=== PATIENT | male | born 2000 | race Caucasian/White ===

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

== ENCOUNTER 2022-11-25 12:44 | Emergency (ER) | payer OTHER, SELFPAY ==
[2022-11-25 12:46] VITALS: BP 140/95; PULSE 81; RESP 14; TEMP 36.7; O2SAT 97; BMI 47.2
--- NOTE | 2022-11-25 13:05 | EDS_ITS ---
HPI History of Present Illness Chief Complaint: Abd Pain PFSH PFS Medical History Generalized anxiety disorder Major depressive disorder, recurrent severe without psychotic features PTSD (post-traumatic stress disorder) Home Medications albuterol sulfate 90 mcg/actuation aerosol inhaler (ProAir HFA) 1 puff IH Q6H PRN PRN Wheezing 08/16/16 [History Last Taken Unknown] montelukast 10 mg tablet 1 tab PO QHS 08/16/16 [History Last Taken Unknown] aripiprazole 5 mg tablet 10 mg PO QHS 01/10/20 [History Last Taken Unknown] bupropion HCl 150 mg 24 hr tablet, extended release (Wellbutrin XL) 150 mg PO DAILY 30 days #30 tabs 02/17/21 [Rx Last Taken Unknown] bupropion HCl 300 mg 24 hr tablet, extended release (Wellbutrin XL) 300 mg PO DAILY 30 days #30 tabs 02/17/21 [Rx Last Taken Unknown] buspirone 5 mg tablet 5 mg PO BID 02/17/21 [History Last Taken Unknown] hydroxyzine pamoate 50 mg capsule (Vistaril) 50 mg PO BID PRN PRN Anxiety 02/17/21 [History Last Taken Unknown] melatonin 10 mg tablet 10 mg PO QHS PRN PRN Insomnia 02/17/21 [History Last Taken Unknown] Allergy/AdvReac Type Severity Reaction Status Date / Time No Known Allergies Allergy Verified 11/25/22 12:45 Social History Smoking Status: Never smoker EXAM Physical Exam Const Vital Signs: 11/25/22 12:46 Temperature 98.1 F Temperature Source Temporal Pulse Rate 81 Respiratory Rate 14 Blood Pressure 140/95 H Blood Pressure Mean 110 Pulse Ox 97 Oxygen Delivery Method Room Air MDM MDM MDM Narrative Medical decision making narrative: HISTORY OF PRESENT ILLNESS: 22-year-old male here with concern for abdominal pain secondary to hernia. He states he was at his doctor's office because of several days to weeks of left lower quad abdominal pain. He states his primary doctor thought he may have had a hernia. Sent him to the ED for further evaluation. Notes nausea but no vomiting, left lower quad abdominal pain. No testicular pain. REVIEW OF SYSTEMS: Pertinent positives: Abdominal pain Pertinent negatives: Nausea vomiting, fever PHYSICAL EXAM: Nursing triage notes reviewed, Vital signs reviewed Constitutional: please see mdm HENT: MMM Eyes: Pupils equal round and reactive to light, Extraocular muscles intact Neck: No stridor, no JVD, full neck ROM Lungs: Clear to auscultation, No wheezing or rales. No increased work of breathing, no conversational dyspnea, no accessory muscle use, no nasal flaring. No respiratory distress noted Heart: Regular rate and rhythm, No murmurs, No rubs and No gallops, 2+ distal pulses (radial, femoral, posterior tibial) in all extremities Abdomen: Left lower quadrant TTP, no obvious hernia, no overlying skin changes, no testicular tenderness. : No CVAT, normal testicular lie, positive cremasteric reflex, no testicular tenderness on exam Extremities: No edema Neuro: No focal neurological deficits, cranial nerves II through XII intact, 5/5 strength in all extremities. Intact sensation to light touch in all extremities, 2+ reflexes bilateral patella tendons. Normal gait. No ataxia. Skin: No rash or lesions noted MEDICAL DECISION MAKING: Chief Complaint: Abdominal pain External records reviewed: CT scan from 2016 shows no acute process Consults: none ALL IMAGES (IF OBTAINED) HAVE BEEN PERSONALLY REVIEWED AND INTERPRETED BY MYSELF. Lactate is wnl indicating no end-organ hypoperfusion and/or hypoxia. CBC without leukocytosis, severe anemia, no thrombocytopenia. BMP without evidence of significant electrolyte abnormalities, no anion gap, no acute kidney injury. Lipase is wnl indicating no pancreatic inflammation. LFTs show no evidence of hepatobiliary pathology. Urinalysis shows no evidence of urinary inflammation suggestive of UTI [facility] Narrative: Patient was hemodynamically stable, afebrile, nontoxic appearing. Abdominal exam is not consistent with acute surgical abdomen. I considered the following differential diagnosis: Incarcerated hernia, diverticulitis, UTI, orchitis, testicular torsion, UTI, pyelonephritis There is no testicular tenderness on exam and is such a below suspicion for testicular abnormalities. I obtained a broad lab and imaging work-up to further elucidate the etiology of the patient's complaints. Specifically was concerned about incarcerated hernia. I will obtain a lactate and basic labs. The patient Toradol for pain, normal saline for fluid resuscitation and Zofran for nausea. Labs are unremarkable for signs of endorgan hypoperfusion, significant anemia or significant systemic inflammation. Urine was negative for UTI. CT scan showed no evidence of acute intra-abdominal pathology. No indication for acute surgical evaluation at this time. Patient was discharged home with close general surgery follow-up and strict return precautions. The patient and/or family, caregivers express understanding. The patient and/or family, caregivers agrees with the plan. Shared decision making: I will have a discussion with the patient and or visitors regarding risk/benefits of further testing or admission. They will be made aware of of the risk/benefits inherent in this decision they will be given the opportunity to voice understanding. Total critical care time today provided was at least 0 minutes. This excludes separately billable procedures. Critical care time (if documented) is secondary to the patient having high probability of clinically significant/life threatening deterioration in the patient's condition which required my urgent intervention. Lab Data Attestation: I reviewed the patient's lab results. Labs: Laboratory Results - last 24 hr 11/25/22 11/25/22 13:35 14:05 WBC 8.7 RBC 4.97 Hgb 14.5 Hct 43.2 MCV 86.9 MCH 29.2 MCHC 33.6 RDW Std Deviation 39.8 RDW Coeff of Divya 12.7 Plt Count 217 MPV 12.1 H Immature Gran % (Auto) 0.500 Neut % (Auto) 67.7 Lymph % (Auto) 23.9 [place] % (Auto) 6.5 Eos % (Auto) 0.8 Baso % (Auto) 0.6 Absolute Neuts (auto) 5.9 Absolute Lymphs (auto) 2.09 Nucleated RBC % 0 Sodium 140 Potassium 4.1 Chloride 108 H Carbon Dioxide 27.0 Anion Gap 5 BUN 13 Creatinine 0.87 Estim Creat Clear Calc 166.28 Est GFR (MDRD) Af Amer 144 Est GFR (MDRD) Non-Af 119 BUN/Creatinine Ratio 15.0 Glucose 95 Lactic Acid 1.0 Calcium 8.9 Total Bilirubin 0.30 Direct Bilirubin 0.17 AST 22 ALT 37 Alkaline Phosphatase 65 Total Protein 7.5 Albumin 3.3 Globulin 4.2 Lipase 32 Urine Color Yellow Urine Clarity Clear Urine pH 6.0 Ur Specific [place] 1.015 Urine Protein 15 H Urine Glucose (UA) Normal Urine Ketones Negative Urine Occult Blood Negative Urine Nitrite Negative Urine Bilirubin Negative Urine Urobilinogen Normal Ur Leukocyte Esterase Negative Urine RBC 0 SEEN Urine WBC 0 SEEN Ur Squamous Epith Cells 0-5 SEEN Urine Bacteria 0 SEEN Urine Mucus 0 SEEN Radiography Diagnostic Testing: Clinical Impression(s) from Imaging Studies Abdomen CT 11/25/22 13:20 IMPRESSION: Normal unenhanced CT of the abdomen and pelvis. Electronically Signed: Jose Morales MD at 15:18 EDT Reading Location ID and State: [facility] / MD , Service support , Discharge Plan Triage Chief Complaint: Abd Pain ED Provider: Donavan Lama Dx/Rx/DC Orders Clinical Impression: Abdominal pain, acute, left lower quadrant Instructions: Abdominal Pain Prescriptions: No Action montelukast 10 MG tablet 1 tab PO QHS Patient Comments: albuterol sulfate [ProAir HFA] 1 PUFF inhaler 1 puff IH Q6H PRN PRN (Reason: Wheezing) Patient Comments: aripiprazole 5 MG tablet 10 mg PO QHS bupropion HCl [Wellbutrin XL] 300 mg tablet extended release 24 hr 300 mg PO DAILY 30 Days Qty: 30 1RF Rx Instructions: Take with one 150mg for a total of 450 mg daily q am. bupropion HCl [Wellbutrin XL] 150 mg tablet extended release 24 hr 150 mg PO DAILY 30 Days Qty: 30 0RF buspirone [BuSpar] 5 mg Tablet 5 mg PO BID hydroxyzine pamoate [Vistaril] 50 mg Capsule 50 mg PO BID PRN PRN (Reason: Anxiety) melatonin 10 mg Tablet 10 mg PO QHS PRN PRN (Reason: Insomnia) Primary Care Provider: Sosa Duke Referrals: Kelly Cardenas MD [Med Staff - Active Staff] - Activity Restrictions/Additional Instructions: Thank you for trusting us with your care today! Please take Tylenol (2 pills, 650 mg), ibuprofen (2 pills, 400 mg) every 6 hours as needed for pain and fever control. Please return to the emergency department if your symptoms change or worsen. Please follow with your primary care physician for further outpatient evaluation and management. Disposition Disposition: Home, Self Care Discharge Date/Time: 11/25/22 15:53
--- NOTE | 2022-11-25 13:20 | CT_ITS ---
STUDY: CT ABDOMEN AND PELVIS WITHOUT CONTRAST REASON FOR EXAM: Male, 22 years old. Left sided abdominal pain r/o hernia RADIATION DOSAGE (If Supplied By Facility): CTDIvol = ( 34.45 ) mGy, DLP = ( 1988.49 ) mGycm TECHNIQUE: Transaxial images were obtained from the dome of the diaphragm to the symphysis pubis without oral contrast, and without intravenous contrast. Sagittal and coronal images were reconstructed. Individualized dose optimization techniques were used for this CT. COMPARISON: Comparison is made with prior study dated March 31, 2016. FINDINGS: The visualized lung bases are unremarkable. The visualized portions of the heart are within normal limits. Normal liver. Normal gallbladder and extrahepatic biliary system. Normal spleen. Normal pancreas. Normal bilateral adrenal glands. Normal right kidney. Normal left kidney. Normal visualized stomach. Normal small intestine. Normal colon. The appendix is visualized and appears normal. Small lymph nodes are once again seen in the mesenteric fat in the right lower quadrant suggesting mesenteric adenitis. Normal abdominal aorta. Normal inferior vena cava. Normal retroperitoneum. The urinary bladder is empty. Normal abdominal wall. No evidence of inguinal hernia. Normal osseous structures. CT/Abdomen/Pel W ORAL Cont Only IMPRESSION: Normal unenhanced CT of the abdomen and pelvis. Electronically Signed: Jose Morales MD at 15:18 EDT ,
[2022-11-25] MEDS: Ketorolac 15 MG/ML Vial IV (13:37)
[2022-11-25] MEDS: 0.9% Normal Saline 1,000 ML 1000 ML IV (13:37)
[2022-11-25] MEDS: Ondansetron 4 MG/2 ML Vial IV (13:38)
[2022-11-25 13:42] LABS: Absolute Lymphocyte Count 2.09 X10^3/uL (0.83-4.51); Absolute Neutrophil Count 5.9 X10^3/uL (2.0-7.7); Basophil# 0.05 X10^3/uL; Basophil% 0.6 % (0-1); Eosinophil# 0.07 X10^3/uL; Eosinophils% 0.8 % (0-5); Hematocrit 43.2 % (40-54); Hemoglobin 14.5 g/dL (13.0-16.5); Lymphocyte # 2.09 X10^3/ul (0.83-4.51); Lymphocyte % 23.9 % (19-41); Mean Corp Hgb Conc 33.6 g/dL (32-36); Mean Corpuscular Hgb 29.2 pg (27.0-32.0); Mean Corpuscular Volume 86.9 fL (80-94); Mean Platelet Vol. 12.1 fl (6.2-12.0); Monocyte# 0.57 X10^3/uL; Monocyte% 6.5 % (0-10); NRBC Flagged by Analyzer 0 % (0-5); Neutrophil # 5.92 X10^3/uL (2.7-7.7); Neutrophil % 67.7 % (47-70); Platelet Count 217 K/mm3 (150-450); RBC Distribution Width CV 12.7 % (11.6-14.6); RBC Distribution Width SD 39.8 fl (35.1-43.9); Red Blood Count 4.97 M/mm3 (4.6-6.2); White Blood Count 8.7 K/mm3 (4.4-11.0)
[2022-11-25 14:05] LABS: AST(SGOT) 22 U/L (15-37); Alanine Aminotransfer ALT/SGPT 37 U/L (16-61); Albumin, Serum 3.3 g/dL (3.2-5.0); Alkaline Phosphatase 65 U/L (45-117); Anion Gap 5 (5-15); BUN 13 mg/dL (7-18); Bilirubin, Direct 0.17 mg/dL (0.00-0.30); Calcium,Total 8.9 mg/dL (8.5-10.1); Chloride 108 mmol/L (98-107); Creatinine, Serum 0.87 mg/dL (0.70-1.30); EST Glomerular Filtration Rate 119 mL/min (>60); Est Glom Filt Rate - Afr Amer 144 mL/min (>60); Estimated Creatinine Clearance 166.28 ml/min; Globulin 4.2 g/dL (2.2-4.2); Glucose 95 mg/dL (74-106); Lipase 32 U/L (13-75); Potassium 4.1 mmol/L (3.5-5.1); Protein, Total 7.5 g/dL (6.4-8.2); Sodium Level 140 mmol/L (136-145)
[2022-11-25 14:11] LABS: Bacteria 0 SEEN /hpf (None Seen); Mucous, Urine 0 SEEN /hpf (<or=2+); Red Blood Cells-Urine 0 SEEN /hpf (0-5); White Blood Cells 0 SEEN /hpf (0-5)
[2022-11-25 14:18] LABS: Color, Urine Yellow (Yellow); Glucose, Dipstick Normal (Normal); Ketone-Dipstick Negative (Negative); Leukocyte Esterase-Dipstick Negative /ul (Negative); Nitrite-Dipstick Negative (Negative); Occult Blood-Urine Negative /ul (Negative); Protein-Dipstick 15 mg/dl (Negative); Specific Gravity, Urine 1.015 (1.002-1.030); Urine Bilirubin Dipstick Negative (Negative); Urine Clarity Clear (Clear); Urine Urobilinogen Normal (Normal)
[2022-11-25 14:26] LABS: Squamous Epithelial Cells - UA 0-5 SEEN /hpf (0-5)
== END 2022-11-25 15:53 | disposition home or self-care (01) ==
PROVIDERS: Emergency Provider Emergency Medicine; PCP Family Medicine; Visit Provider Emergency Medicine
DX: R10.31 Right lower quadrant pain (principal)
CPT/HCPCS: 74176; 80048; 80076; 81001; 83605; 83690; 85025; 96374; 96375; 99284; J7030; J2405

== ENCOUNTER → 2022-11-28 | Outpatient (CLI) | payer OTHER, SELFPAY ==
--- NOTE | 2022-11-28 13:30 | RAD_ITS ---
EXAM: XR LEFT HIP WITH PELVIS WHEN PERFORMED, 2 OR 3 VIEWS CLINICAL INDICATION: pain TECHNIQUE: Two or three views of the left hip with pelvis when performed. COMPARISON: No relevant prior studies available. FINDINGS: BONES/JOINTS: Unremarkable. No displaced fracture. No destructive or sclerotic lesions. Note that overlapping bowel shadows may however obscure fine detail. Sacroiliac joint is unremarkable. No widening of the pubic symphysis. The articular structures are unremarkable. SOFT TISSUES: Unremarkable. No soft tissue swelling or gas. RAD/HIP, UNI W/ Pelvis 2-3 Views IMPRESSION: No evidence of displaced pelvic or hip fracture. Electronically Signed: Jose Adamson MD at 21:50 EDT ,
[2022-11-28 15:07] LABS: Absolute Lymphocyte Count 2.34 X10^3/uL (0.83-4.51); Absolute Neutrophil Count 7.8 X10^3/uL (2.0-7.7); Basophil# 0.05 X10^3/uL; Basophil% 0.5 % (0-1); Eosinophils% 0.9 % (0-5); Hematocrit 43.2 % (40-54); Hemoglobin 14.2 g/dL (13.0-16.5); Lymphocyte # 2.34 X10^3/ul (0.83-4.51); Lymphocyte % 21.4 % (19-41); Mean Corp Hgb Conc 32.9 g/dL (32-36); Mean Corpuscular Volume 88.2 fL (80-94); Mean Platelet Vol. 12.3 fl (6.2-12.0); Monocyte% 5.5 % (0-10); NRBC Flagged by Analyzer 0 % (0-5); Neutrophil # 7.77 X10^3/uL (2.7-7.7); Neutrophil % 71.1 % (47-70); Platelet Count 209 K/mm3 (150-450); RBC Distribution Width CV 12.8 % (11.6-14.6); RBC Distribution Width SD 41.3 fl (35.1-43.9); White Blood Count 10.9 K/mm3 (4.4-11.0)
[2022-11-28 15:25] LABS: ALB/GLOB Ratio 0.8 RATIO (0.9-2.4); AST(SGOT) 26 U/L (15-37); Alanine Aminotransfer ALT/SGPT 43 U/L (16-61); Albumin, Serum 3.4 g/dL (3.2-5.0); Alkaline Phosphatase 64 U/L (45-117); Anion Gap 3 (5-15); BUN 9 mg/dL (7-18); BUN/Creat Ratio 10.7 RATIO (10-20); Calcium,Total 8.9 mg/dL (8.5-10.1); Chloride 110 mmol/L (98-107); Creatinine, Serum 0.84 mg/dL (0.70-1.30); EST Glomerular Filtration Rate 123 mL/min (>60); Est Glom Filt Rate - Afr Amer 149 mL/min (>60); Glucose 102 mg/dL (74-106); Protein, Total 7.4 g/dL (6.4-8.2); Sodium Level 138 mmol/L (136-145)
[2022-11-30 11:09] LABS: Lyme Scn Total Ab w/Rflx Negative (Negative)
== END | disposition home or self-care (01) ==
PROVIDERS: PCP Family Medicine; Referring Provider Family Medicine; Visit Provider Family Medicine
DX: R10.32 Left lower quadrant pain (principal)
CPT/HCPCS: 36415; 73502; 80053; 85025; 86618

== ENCOUNTER → 2024-05-30 | Outpatient (CLI) | payer OTHER, SELFPAY ==
--- NOTE | 2024-05-30 11:47 | RAD_ITS ---
PROCEDURE: CHEST PA AND LATERAL REASON FOR EXAM: Flu-like symptoms TECHNIQUE: Four view PA and lateral chest. COMPARISON: None. FINDINGS: The heart size is normal. The mediastinal contour is unremarkable. The lungs are clear. The bones are unremarkable. RAD/Chest PA and Lateral IMPRESSION: No evidence of acute cardiopulmonary disease. Negative examination. Reading Location: [address]
== END | disposition home or self-care (01) ==
LOC: MTRAD 11:46
PROVIDERS: PCP Family Medicine
DX: R68.89 Other general symptoms and signs (principal)
CPT/HCPCS: 71046